=== PATIENT | female | born 1945 | race Caucasian/White ===

== ENCOUNTER 2017-01-29 18:47 | Emergency (ER) | payer OTHER, MEDICAID ==
[~2017-01-29] VITALS: Ht 152.4 cm; Wt 61.2 kg
[~2017-01-29 18:47] MED LIST: ATOR20TA64 PO; BACL10TA PO; FLUT16SP16 NS; IBUP-1480 PO; LIP10 PO; METO25TA3 PO; METO25TA6 PO; OMEP20CA10 PO; SPIR25TA4 PO; VALS160T2 PO; [UNRECOGNIZED DRUG - CODE] PO
[2017-01-29 18:54] VITALS: BP_SYST 142
[2017-01-29] MEDS ORDERED: ONDANSETRON 4 MG ODT TAB PO ONE ×2 (19:00→20:15)
--- NOTE | 2017-01-29 19:10 | NUR ---
Patient triaged and placed in waiting room. VSS and patient appears in no acute distress at this time. Accompanied by daughter , awaiting available bed, and MD notified of need for MSE.
--- NOTE | 2017-01-29 19:15 | NUR ---
CT head ordered by Gunjan Vargas due to recent head injury.
--- NOTE | 2017-01-29 19:35 | NUR ---
Patient to ED bed 7 to await further eval by .
--- NOTE | 2017-01-29 19:40 | NUR ---
Patient to ED for eval of head pain, nausea, and vomiting s/p non-syncopal slip and fall while in shower. No LOC reported, patient also denies neck and back pain. Patient medicated with Zofran ODT while patient was in triage. Patient reports nausea/vomiting decreased. Awaiting CT scan and further eval by ER MD. Will continue to observe and assess.
--- NOTE | 2017-01-29 20:00 | NUR ---
Patient to CT scan in stable condition.
[2017-01-29] MEDS ORDERED: ACETAMINOPHEN 325 MG TABLET PO ONE (20:15)
--- NOTE | 2017-01-29 20:45 | NUR ---
Dr Sheets at bedside to re-evaluate patient. Spoke with patient and family regarding results and plan of care. Questions answered by Dr Sheets.
[2017-01-29 21:10] VITALS: BP_SYST 154
--- NOTE | 2017-01-29 21:10 | NUR ---
Patient given written and verbal discharge instructions and verbalizes understanding. ER MD discussed with patient the results and treatment provided. Patient in stable condition. ID arm band removed. No RX given. Patient educated on pain management and to follow up with PMD. Pain Scale 3. Opportunity for questions provided and answered.
--- NOTE | 2017-01-29 21:10 | NUR ---
No adverse reaction noted to medication.
== END 2017-01-29 21:10 | disposition home or self-care (01) ==
LOC: SED 18:47
DX: S09.90XA Unspecified injury of head, initial encounter (principal); M54.2 Cervicalgia; R11.0 Nausea; K21.9 Gastro-esophageal reflux disease without esophagitis; I10 Essential (primary) hypertension; E78.5 Hyperlipidemia, unspecified; Z88.2 Allergy status to sulfonamides; Z88.5 Allergy status to narcotic agent; Z88.6 Allergy status to analgesic agent; Z88.8 Allergy status to other drugs, medicaments and biological substances; Z91.040 Latex allergy status; Z91.018 Allergy to other foods; Z79.899 Other long term (current) drug therapy; W19.XXXA Unspecified fall, initial encounter; Y93.E1 Activity, personal bathing and showering; Y92.091 Bathroom in other non-institutional residence as the place of occurrence of the external cause; Y99.8 Other external cause status
CPT/HCPCS: 70450; 99284; Q0162

== ENCOUNTER 2017-05-07 00:30 | Emergency (ER) | payer OTHER, MEDICAID ==
[~2017-05-07] VITALS: Ht 152.4 cm; Wt 72.6 kg
[2017-05-07 00:30] VITALS: BP_SYST 193
[2017-05-07] MEDS ORDERED: DIPHENHYDRAMINE INJ 50 MG/ML VIAL IVP ONE (00:45)
[2017-05-07] MEDS ORDERED: methylPREDNISolone SOD SUCC/PF 62.5 MG/ML VIAL IVP ONE (00:45)
[2017-05-07 01:42] VITALS: BP_SYST 163
== END 2017-05-07 01:42 | disposition home or self-care (01) ==
LOC: SED 00:30
DX: L50.0 Allergic urticaria (principal); T46.6X5A Adverse effect of antihyperlipidemic and antiarteriosclerotic drugs, initial encounter; K21.9 Gastro-esophageal reflux disease without esophagitis; I10 Essential (primary) hypertension; E78.5 Hyperlipidemia, unspecified; Z90.710 Acquired absence of both cervix and uterus; Z88.2 Allergy status to sulfonamides; Z88.6 Allergy status to analgesic agent; Z91.040 Latex allergy status; Z88.5 Allergy status to narcotic agent; Z91.018 Allergy to other foods; Z79.899 Other long term (current) drug therapy; Y92.89 Other specified places as the place of occurrence of the external cause
CPT/HCPCS: 96374; 96375; 99284; J1200; J2930

== ENCOUNTER 2020-04-20 15:40 | Observation (INO) | payer OTHER, MEDICAID, SELFPAY ==
[~2020-04-20] VITALS: Ht 152.4 cm; Wt 61.7 kg
[~2020-04-20 15:40] MED LIST changes: +FEXO-61 PO; -IBUP-1480 PO; +IBUP-1970 PO; -OMEP20CA10 PO; +OMEP20CA15 PO; -SPIR25TA4 PO; +SPIR25TA6 PO; -[UNRECOGNIZED DRUG - CODE] PO
[2020-04-20 15:58] VITALS: BP_SYST 160
--- NOTE | 2020-04-20 16:08 | NUR ---
Patient triaged and placed in waiting room. VSS and patient appears in no acute distress at this time. Awaiting available bed, and MD notified of need for MSE.
--- NOTE | 2020-04-20 16:10 | NUR ---
PT AAO AND AMBULATORY C/O MUSCLE CRAMPS AND HEADACHE. PT REPORTS PCP SENT HER HERE FOR LABS TO BE DRAWN. PCP REPORTED HYPONATREMIA. V/S STABLE.
--- NOTE | 2020-04-20 16:20 | NUR ---
ER Dr. PETERSEN at bedside examining patient.
--- NOTE | 2020-04-20 16:40 | NUR ---
BLOOD DRAWN PER LAB
--- NOTE | 2020-04-20 16:41 | NUR ---
Patient to ER bed 7 to gown for evaluation. Side rails up. Report given to CLAUDINE Martinez.
[2020-04-20 16:57] LABS: BASOPHILS # (AUTO) 0.1 K/uL (0.0-0.2); BASOPHILS % (AUTO) 0.9 % (0.0-2.0); EOSINOPHILS # (AUTO) 0.1 K/uL (0.0-0.4); EOSINOPHILS % (AUTO) 1.1 % (0.0-4.0); HEMATOCRIT 37.2 % (36-48); HEMOGLOBIN 13.3 g/dL (12.0-16.0); LYMPHOCYTES # (AUTO) 2.5 K/uL (1.0-5.5); LYMPHOCYTES % (AUTO) 32.5 % (20.5-51.5); MEAN CORPUSCULAR HEMOGLOBIN 33 pg (27-31); MEAN CORPUSCULAR HGB CONC 36 % (32-36); MEAN CORPUSCULAR VOLUME 93 fL (79.0-98.0); MONOCYTES # (AUTO) 0.6 K/uL (0.0-1.0); MONOCYTES % (AUTO) 7.5 % (1.7-9.3); NEUTROPHILS # (AUTO) 4.4 K/uL (1.8-7.7); PLATELET COUNT (AUTO) 364 K/uL (130-430); RED CELL DISTRIBUTION WIDTH 12.7 % (9.0-15.0); WHITE BLOOD COUNT (AUTO) 7.6 K/uL (4.8-10.8)
--- NOTE | 2020-04-20 17:00 | NUR ---
COVID SWAB OBTAINED AND SENT. URINE SENT TO LAB FOR ANALYSIS.
[2020-04-20 17:14] LABS: ANION GAP 5 (5-15); CALCIUM 8.5 mg/dL (8.4-11.0); CHLORIDE 93 mmol/L (98-107); CREATININE 0.63 mg/dL (0.55-1.30); GLUCOSE 102 mg/dL (70-99); POTASSIUM 4.8 mmol/L (3.5-5.1); SODIUM SERUM 125 mmol/L (136-145); UREA NITROGEN, BLOOD 12 mg/dL (8-21)
[2020-04-20 17:23] LABS: ALANINE AMINOTRANSFERASE 28 U/L (12-78); ALBUMIN 2.5 g/dL (3.4-4.8); ASPARTATE AMINOTRANSFERASE 31 U/L (10-37); TOTAL BILIRUBIN 0.5 mg/dL (0.0-1.0)
[2020-04-20 17:26] LABS: BILIRUBIN,URINE NEGATIVE (NEGATIVE); BLOOD, URINE 2+ (NEGATIVE); CLARITY/URINE CLEAR (CLEAR); COLOR,URINE YELLOW (YELLOW); GLUCOSE,URINE NEGATIVE (NEGATIVE); KETONES,URINE NEGATIVE (NEGATIVE); LEUKOCYTE ESTERASE ,URINE NEGATIVE (NEGATIVE); NITRITE, URINE NEGATIVE (NEGATIVE); PROTEIN URINE 3+ (NEGATIVE); UROBILINOGEN,URINE 0.2 (0.2-1.0)
[2020-04-20 17:40] LABS: BACTERIA,URINE FEW /HPF (None Seen); RBC,URINE 0-3 /HPF (0-3); WBC,URINE NONE SEEN /HPF (0-3)
--- NOTE | 2020-04-20 17:55 | NUR ---
Patient will be admitted to care of DR. CHEN. Admitted to TELE OBS unit. Will go to room 134A. Belongings list completed. Complete and up to date summary report printed. SBAR report to be given at bedside with opportunity for questions.
[2020-04-20] MEDS ORDERED: ALBUTEROL SULFATE 0.083% 2.5 MG/3 ML VIAL.NEB INH PRN (19:15)
[2020-04-20] MEDS ORDERED: LORazepam 2 MG/ML VIAL IVP PRN (19:15)
[2020-04-20] MEDS ORDERED: IBUPROFEN 800 MG TABLET PO PRN (19:30)
[2020-04-20] MEDS ORDERED: BACLOFEN 10 MG TABLET PO PRN (19:30)
--- NOTE | 2020-04-20 19:32 | NUR ---
ADMISSION NOTE Received patient from ER via omar, received report from [] RN. Patient admitted with diagnosis of []. Patient oriented to hospital routine, call light, toileting and safety-patient verbalized understanding.
--- NOTE | 2020-04-20 19:38 | NUR ---
Patient will be admitted to care of Dr. Rivera. Admitted to Tele unit. Will go to room 134. Belongings list completed. Complete and up to date summary report printed. SBAR report to be given at bedside with opportunity for questions.
--- NOTE | 2020-04-20 19:38 | NUR ---
Transfer to Tele via ACLS protocol. Licensed nurse present. IV present no signs or symptoms of infiltration.
[2020-04-20 19:51] VITALS: BP_SYST 157
[2020-04-20 20:00] VITALS: BP_SYST 157
--- NOTE | 2020-04-20 20:00 | NUR ---
Opening notes Received report. Patient is resting in bed, no signs of distress noted. Breathing even and unlabored. IV patent and intact, no signs of infiltration noted. Patient ambulatory with steady gait. Oriented patient to room and call light, call light with the patient. Safety precautions in place.
[2020-04-20 20:23] VITALS: BP_SYST 157
[2020-04-20] MEDS ORDERED: ATORVASTATIN 20 MG TABLET PO SCH (21:00)
[2020-04-20] MEDS ORDERED: VALSARTAN 160 MG TABLET (DIOVAN) PO SCH (21:00)
[2020-04-20] MEDS ORDERED: METOPROLOL SUCCINATE 25 MG TAB.SR.24H (TOPROL XL) PO SCH (21:00)
[2020-04-20] MEDS: METOPROLOL TARTRATE 25 MG TABLET PO SCH (21:49)
[2020-04-20] MEDS: NACL 0.9% 1,000 ML IV SCH (21:49)
--- NOTE | 2020-04-20 21:50 | NUR ---
Medications given. Educated the action and side effects of Lopressor. Patient verbalized understanding and tolerated well. No other needs. Call light with the patient. Safety precautions in place.
--- NOTE | 2020-04-20 23:30 | NUR ---
RN rounds Patient is resting in bed, watching on phone. No signs of distress noted. Breathing even and unlabored. IVF infusing well. call light with the patient. Safety precautions in place.
[2020-04-21 00:30] VITALS: BP_SYST 161
--- NOTE | 2020-04-21 02:00 | NUR ---
RN rounds Patient ambulates to bathroom, steady gait. No assistance required. Patient back in bed. No signs of distress noted. Breathing even and unlabored. No dizziness. IVF infusing well. No needs. Call light with the patient. Safety precautions in place.
[2020-04-21 02:58] VITALS: BP_SYST 145
--- NOTE | 2020-04-21 04:00 | NUR ---
RN rounds Patient provided with warm blanket. No other needs. No signs of distress noted. Breathing even and unlabored. IVF infusing well. Call light with the patient. Safety precautions in place.
[2020-04-21 06:42] LABS: ALANINE AMINOTRANSFERASE 24 U/L (12-78); ALBUMIN 2.1 g/dL (3.4-4.8); ANION GAP 4 (5-15); ASPARTATE AMINOTRANSFERASE 25 U/L (10-37); CHLORIDE 100 mmol/L (98-107); CREATININE 0.48 mg/dL (0.55-1.30); GLUCOSE 95 mg/dL (70-99); POTASSIUM 4.3 mmol/L (3.5-5.1); SODIUM SERUM 131 mmol/L (136-145); THYROID STIMULATING HORMONE 5.56 uIu/mL (0.36-3.74); TOTAL BILIRUBIN 0.4 mg/dL (0.0-1.0); UREA NITROGEN, BLOOD 9 mg/dL (8-21)
--- NOTE | 2020-04-21 06:50 | NUR ---
Closing notes Patient is resting in bed, no signs of distress noted. Breathing even and unlabored on room air. IV patent and intact, infusing fluids. All needs met throughout the shift. Call light with the patient. Safety precautions in place. Will endorse care to day shift RN.
[2020-04-21 07:27] LABS: BASOPHILS # (AUTO) 0.1 K/uL (0.0-0.2); EOSINOPHILS # (AUTO) 0.1 K/uL (0.0-0.4); HEMATOCRIT 35.2 % (36-48); HEMOGLOBIN 12.1 g/dL (12.0-16.0); LYMPHOCYTES # (AUTO) 3.3 K/uL (1.0-5.5); MEAN CORPUSCULAR HEMOGLOBIN 33 pg (27-31); MEAN CORPUSCULAR HGB CONC 35 % (32-36); MONOCYTES # (AUTO) 0.7 K/uL (0.0-1.0); MONOCYTES % (AUTO) 10.5 % (1.7-9.3); NEUTROPHILS # (AUTO) 2.8 K/uL (1.8-7.7); NEUTROPHILS % (AUTO) 39.5 % (40.0-70.0); PLATELET COUNT (AUTO) 321 K/uL (130-430); RED CELL DISTRIBUTION WIDTH 12.6 % (9.0-15.0)
[2020-04-21 07:38] LABS: MEAN CORPUSCULAR VOLUME 93 fL (79.0-98.0)
--- NOTE | 2020-04-21 08:00 | NUR ---
Opening note patient resting in bed, a/ox4, denies pain, no signs of distress, IV line is patent and infusing well, educated on plan of care and call light system, she verbalized understanding, bed in lowest position, two side rails up, call light within reach, fall and aspiration precautions in place.
[2020-04-21 08:10] VITALS: BP_SYST 149
[2020-04-21] MEDS: METOPROLOL TARTRATE 25 MG TABLET PO SCH (08:35)
--- NOTE | 2020-04-21 08:35 | NUR ---
Medications verified allergies and time of medications with the patient, educated her on scheduled medications uses and potential side effects, she verbalized understanding and tolerated well, IV line is patent and infusing well, continuing to monitor, bed in lowest position, two side rails up, call light within reach, fall and aspiration precautions in place.
[2020-04-21] MEDS ORDERED: VALSARTAN 160 MG TABLET (DIOVAN) PO SCH (09:00)
[2020-04-21] MEDS ORDERED: OMEPRAZOLE Non-Formulary 20 MG CAPSULE.DR PO SCH (09:00)
[2020-04-21] MEDS ORDERED: FLUTICASONE PROPIONATE 50 mCg/SPRAY 16 GM NS SCH (09:00)
[2020-04-21] MEDS ORDERED: SPIRONOLACTONE 25 MG TABLET (ALDACTONE) PO SCH (09:00)
--- NOTE | 2020-04-21 10:00 | NUR ---
CONSULTATION PAGED/CALLED Reason for Consultation: [] HYPONATREMIA Person Who was Notified: [] DR GRANADO Consulting Physician: [] DR GRANADO Board [place] Specialty: [] NEPHRO Ordering Physician: [] DR CHEN
--- NOTE | 2020-04-21 10:30 | NUR ---
Dr. Mcguire rounds assessed patient, okay to discharge per Dr. Mcguire standpoint, no discharge orders from Dr. Rivera at this time.
[2020-04-21] MEDS: NACL 0.9% 1,000 ML IV SCH (11:09)
--- NOTE | 2020-04-21 11:10 | NUR ---
RN rounds patient resting in bed, awake, denies pain, answered her questions regarding plan of care, hung new bag of IVF at this time, IV line is patent and infusing well, continuing to monitor, bed in lowest position, two side rails up, call light within reach, fall and aspiration precautions in place.
[2020-04-21 12:00] VITALS: BP_SYST 151
[2020-04-21 13:26] VITALS: BP_SYST 145
[2020-04-21] MEDS ORDERED: CLOP75TA32 PO (14:13)
[2020-04-21] MEDS ORDERED: VITD2000 PO (14:13)
--- NOTE | 2020-04-21 14:17 | NUR ---
PAGED DR MELVA CHEN SPOKE TO MIRI
--- NOTE | 2020-04-21 14:25 | NUR ---
Spoke with Dr. Rivera reviewed medication reconciliation with the patient and with Dr. Rivera, per Dr. Rivera okay to continue home medications, follow up with PCP and Dr. Mcguire
--- NOTE | 2020-04-21 14:30 | NUR ---
RN rounds patient resting in bed, denies pain, no signs of distress, reviewed discharge paperwork with the patient, patient requesting to speak with social media senior associate. Attempted to call social media senior associate, according to the Director Of Analytics, the social workers and casework manager are in a meeting off-campus at this time, informed patient that it will be sometime until the social media senior associate can come, patient is willing to wait, will follow up. No other needs at this time, continuing to monitor patient, bed in lowest position, two side rails up, call light within reach, fall and aspiration precautions in place. Addendum: 04/21/20 at 1556 by Alvaro Ramos RN Patient calling at this time, she decided to not wait for the social media senior associate, called home health care social worker as well, no answer at this time. Patient called her daughter to pick her up, will follow up with discharge home.
--- NOTE | 2020-04-21 16:20 | NUR ---
D/C Patient Patient given medication reconciliation form and D/C instructions. Exit Care provided. Patient verbalized understanding. MD discussed with patient the results and treatment provided. Ambulatory with steady gait for discharge to home. Patient in stable condition, ID band removed. IV catheter removed, intact and dressing applied, no active bleeding. Home medications continued. Educated patient to follow up with Dr. Mcguire, educated her on adequate fluid intake, she verbalized understanding. Patient educated on pain management. All belongings sent with patient.
--- NOTE | 2020-04-22 15:10 | NUR ---
Discharge Follow Up Phone Call Phoned patient, , but the VM message was in Hungarian and the Admission Assessment stated that patient spoke Hebrew. Phoned patient's daughter, Anastasia, . She stated that the number for patient was correct. She stated that patient was doing fine and she will verify that patient has made her follow up appointment. No questions or concerns.
--- NOTE | 2020-04-26 14:32 | NUR ---
Late Entry 04/21/20 IV ADMINISTRATION END TIME: IV infusion of NS at 75 ml/hr started at 21:49 on 04/20/20 and ended at 11:00 am followed by another bag of NS at 75ml/hr at 11:09 and was discontinued at 16:00 prior to patients discharge on 04/21/20.
== END 2020-04-21 16:20 | disposition home or self-care (01) ==
LOC: SED 15:40 → STU 17:55 → SMU 04-21 10:54
PROVIDERS: ADMIT Internal Medicine Hospice and Palliative Medicine; ATTEND Internal Medicine Hospice and Palliative Medicine
DX: E87.1 Hypo-osmolality and hyponatremia (principal); Z20.828 Contact with and (suspected) exposure to other viral communicable diseases; N39.0 Urinary tract infection, site not specified; I10 Essential (primary) hypertension; K21.9 Gastro-esophageal reflux disease without esophagitis; E78.5 Hyperlipidemia, unspecified; E03.9 Hypothyroidism, unspecified; M79.10 Myalgia, unspecified site; Z90.710 Acquired absence of both cervix and uterus; Z79.899 Other long term (current) drug therapy
CPT/HCPCS: 36415; 80053; 81000-TC; 84443-TC; 84484; 85025; 96360; 96361; 99284; G0378; J7030